=== PATIENT | male | born 1965 | race Caucasian/White ===

== ENCOUNTER → 2016-09-10 | Outpatient (CLI) | payer OTHER ==
--- NOTE | 2016-09-10 15:54 | MG ---
cc: DEJUAN ROSALES M.D., VINCENTI C. M.D. Lab No: [id number] Date: 09/10/2016 Age: 50 Sex: M Hyperventilation. Photic stimulation. Fair hyperventilatory effort. Awake study. A 50-year-old man with memory loss, urinary problems, history hypertension. Vitamin-D. DESCRIPTION OF RECORD The patient has an overall alpha rhythm of 9 to 9.5 Hz, 20-40 microvolts. Symmetrical background. Some eye movement artifact. EKG is artifactual. Hyperventilation was performed at the beginning portion of the study. Overall well-organized and symmetrical. No attenuation. No epileptic activity. Photic stimulation does show a normal posterior driving response. No evidence of any epileptiform features. IMPRESSION Normal EEG. No epileptiform features. Clinical correlation. MD ROLAND Hobbs/LIZA /2:14 PM /3:45 PM
== END ==
LOC: HEEG 07:21
PROVIDERS: ATTEND Specialist
DX: R41.3 Other amnesia (principal)
CPT/HCPCS: 95819